=== PATIENT | female | born 1960 ===

== ENCOUNTER 2021-10-27 09:27 | Outpatient (CLI) | payer SELFPAY ==
[2021-12-29 16:04] LABS: MRSA PCR Negative (Negative)
== END 2021-10-27 09:28 | disposition home or self-care (01) ==
LOC: LBO 09:27

== ENCOUNTER 2022-11-13 13:47 | Outpatient (CLI) | payer SELFPAY ==
[2022-11-13 13:53] LABS: BUN 11 mg/dL (7-18); Calcium 8.5 mg/dL (8.5-10.1); Glucose 77 mg/dL (74-106)
[2022-11-13 13:54] LABS: Chloride 100 mmol/L (98-107); Sodium 140 mmol/L (136-145)
[2022-11-13 14:18] LABS: Glucose 77 mg/dL (74-106)
== END 2022-11-13 13:48 | disposition home or self-care (01) ==
LOC: LBO 13:47
DX: R53.83 Other fatigue (principal)
CPT/HCPCS: 80048; 82947

== ENCOUNTER 2023-01-09 07:45 | Outpatient (CLI) | payer SELFPAY ==
[2023-01-09 07:49] LABS: BUN 10 mg/dL (7-18); Chloride 100 mmol/L (98-107); Glucose 77 mg/dL (74-106); Sodium 140 mmol/L (136-145)
[2023-01-09 07:50] LABS: Anion Gap 7 mmol/L (3-11)
== END 2023-01-09 07:46 | disposition home or self-care (01) ==
LOC: LBO 07:45
DX: R53.83 Other fatigue (principal)
CPT/HCPCS: 80048

== ENCOUNTER 2023-05-18 10:50 | Outpatient (CLI) | payer SELFPAY ==
--- NOTE | 2023-05-18 10:51 | RT.14_ITS ---
TEST charge drop TEST TEST
== END 2023-05-18 10:51 | disposition home or self-care (01) ==
LOC: CARDOPNVT 10:50
DX: I48.91 Unspecified atrial fibrillation (principal)
CPT/HCPCS: 93246

== ENCOUNTER 2023-09-17 14:21 | Outpatient (CLI) | payer SELFPAY ==
[2023-09-17 14:23] LABS: BUN 10 mg/dL (7-18); CREATININE 0.8 mg/dL (0.55-1.02); Chloride 100 mmol/L (98-107); Estimated GFR 82.74 (mL/min/1.73m2); Glucose 77 mg/dL (74-106); Sodium 140 mmol/L (136-145)
== END 2023-09-17 14:22 | disposition home or self-care (01) ==
LOC: LBO 14:22
CPT/HCPCS: 80048

== ENCOUNTER 2024-09-08 09:23 | Outpatient (CLI) | payer SELFPAY ==
--- NOTE | 2025-06-05 | DI.RAD_ITS ---
Exam(s) XR ANKLE LT 2V EXAM: XR ANKLE LT 2V CLINICAL HISTORY: testing unexpected findings TECHNIQUE: 2D digital imaging was performed. COMPARISON: No exams were available for comparison FINDINGS: BONES: No acute fracture is present. No bony destructive lesion is seen. JOINTS:The ankle mortise is normally aligned. SOFT TISSUE: Normal. IMPRESSION: Unremarkable radiographs of the left ankle. Unexpected findings DATA REPOSITORY: RADIATION DOSE DELIVERED:
== END 2024-09-08 09:43 ==
LOC: DI 09:24
CPT/HCPCS: 87641; 82272; 83630; 87480; 87510; 87660

== ENCOUNTER 2024-09-16 14:04 | Outpatient (CLI) | payer SELFPAY | END 2024-09-16 14:05 | disposition home or self-care (01) | LOC: LBO 14:05 | DX: Z00.00 Encounter for general adult medical examination without abnormal findings (principal) | CPT/HCPCS: 84520 ==

== ENCOUNTER 2025-06-05 13:28 | Outpatient (CLI) | payer SELFPAY ==
[2025-06-05 13:30] LABS: Magnesium 2.0 mg/dL (1.6-2.6)
[2025-06-16 12:49] LABS: Albumin 4.4 g/dL (3.2-5.0); Anion Gap 7.9 mmol/L (3-11); BUN 10 mg/dL (9-23); CO2 30.1 mmol/L (20.0-31.0); Calcium 10.2 mg/dL (8.3-10.6); Chloride 104 mmol/L (98-107); Glucose 99 mg/dL (74-106); Potassium 3.7 mmol/L (3.5-5.1); Sodium 142 mmol/L (136-145)
== END 2025-06-05 13:29 | disposition home or self-care (01) ==
LOC: LBO 13:29
DX: R53.83 Other fatigue (principal)
CPT/HCPCS: 83735